=== PATIENT | female | born 1970 | race Caucasian/White ===

== ENCOUNTER → 2023-07-15 06:28 | Day surgery (SDC) | payer BC, SELFPAY | LOC: GI 06:28 | PROVIDERS: ATTENDING PHYSICIAN Internal Medicine Gastroenterology | DX: Z12.11 Encounter for screening for malignant neoplasm of colon (principal); K64.8 Other hemorrhoids; K22.2 Esophageal obstruction; K21.00 Gastro-esophageal reflux disease with esophagitis, without bleeding; K22.89 Other specified disease of esophagus; K44.9 Diaphragmatic hernia without obstruction or gangrene; K31.89 Other diseases of stomach and duodenum; R12 Heartburn; R13.10 Dysphagia, unspecified | CPT/HCPCS: 43249; 43239; G0121; 88305; 88342 ==

== ENCOUNTER → 2023-08-31 07:27 | Outpatient (REF) | payer BC, SELFPAY ==
[2023-08-31 08:07] LABS: % Basophils 0.8 % (0-2); % Eosinophils 3.5 % (0-6); % Lymphocytes 35.1 % (20.5-51.1); % Neutrophils 53.6 % (42.2-75.2); Absolute Eosinophils 0.1 10^3/uL (0-0.7); Absolute Lymphocytes 1.4 10^3/uL (1.2-3.4); Absolute Monocytes 0.3 10^3/uL (0.1-0.6); Absolute Neutrophils 2.1 10^3/uL (1.4-6.5); Hematocrit 38.9 % (37.0-47.0); Hemoglobin 13.6 g/dL (12.0-16.0); Mean Corpuscular Hgb 30.5 pg (27.0-31.0); Mean Corpuscular Volume 87.2 fL (81.0-99.0); Mean Platelet Volume 9.9 fL (7.4-10.4); Nucleated Red Blood Cells % 0 %; Platelet Count 207 10^3/uL (130-400); Red Blood Cell Count 4.46 10^6/uL (4.20-5.40)
[2023-08-31 09:12] LABS: Glycohemoglobin (HgbA1c) 5.3 % (4.0-5.6)
[2023-08-31 09:38] LABS: ALT (SGPT) 27 U/L (0-35); AST (SGOT) 28 U/L (14-36); Albumin 4.3 g/dl (3.5-5.0); Alkaline Phosphatase 60 U/L (38-126); Blood Urea Nitrogen 18 mg/dl (7-17); Calcium 9.3 mg/dl (8.4-10.2); Carbon Dioxide 27 mmol/L (22-30); Glucose 86 mg/dl (70-99); Potassium 4.2 mmol/L (3.5-5.1); Sodium 136 mmol/L (135-145); Total Bilirubin 0.8 mg/dl (0.2-1.3); Total Cholesterol 169 mg/dl (50-199); Total Protein 6.8 g/dl (6.3-8.2); Triglyceride 65 mg/dl (10-149); Uric Acid 5.8 mg/dl (2.5-6.2); Very Low Density Lipoprotein 13 mg/dl (0-30); eGFR > 60.00
[2023-08-31 09:46] LABS: HDL Cholesterol 76 mg/dl; LDL Cholesterol, Calculated 80 mg/dl
[2023-08-31 09:56] LABS: Chloride 103 mmol/L (98-107)
[2023-08-31 09:57] LABS: TSH Reflex To Free T4 1.19 uIU/ml (0.47-4.68)
[2023-08-31 10:15] LABS: Vitamin B12 322 pg/ml (239-931)
== END ==
LOC: REG 07:27
PROVIDERS: ATTENDING PHYSICIAN Nurse Practitioner Family; FAMILY PHYSICIAN Nurse Practitioner
DX: E78.00 Pure hypercholesterolemia, unspecified (principal); Z13.1 Encounter for screening for diabetes mellitus; R53.83 Other fatigue; E66.09 Other obesity due to excess calories; R20.0 Anesthesia of skin; K21.9 Gastro-esophageal reflux disease without esophagitis
CPT/HCPCS: 36415; 80053; 80061; 82607; 83036; 83735; 84443; 84550; 85025

== ENCOUNTER → 2023-09-08 | Outpatient (REF) | payer BC, SELFPAY | LOC: DHSLP | PROVIDERS: ATTENDING PHYSICIAN Nurse Practitioner | DX: G47.33 Obstructive sleep apnea (adult) (pediatric) (principal) | CPT/HCPCS: 95800 ==

== ENCOUNTER → 2023-12-06 15:58 | Outpatient (REF) | payer BC, SELFPAY | LOC: WDC 15:58 | PROVIDERS: ATTENDING PHYSICIAN Nurse Practitioner | DX: Z12.31 Encounter for screening mammogram for malignant neoplasm of breast (principal) | CPT/HCPCS: 77063; 77067 ==